=== PATIENT | female | born 2000 | race Caucasian/White ===

== ENCOUNTER → 2020-02-05 | Outpatient (REF) | payer BC ==
[2020-02-05 11:50] LABS: URINE PREG TEST NEGATIVE (NEGATIVE)
== END ==
LOC: M LABDRAW1 09:49
PROVIDERS: ATTEND Orthopaedic Surgery
DX: Z00.00 Encounter for general adult medical examination without abnormal findings (principal)

== ENCOUNTER → 2020-03-29 | Outpatient (CLI) | payer BC ==
[~2020-03-29] MED LIST: HYDR-643 PO; ISIB1TAB PO; PROAAER10 INH
== END ==
LOC: M LABSMTC 11:01
PROVIDERS: ATTEND Anesthesiology
DX: Z01.818 Encounter for other preprocedural examination (principal); Z11.59 Encounter for screening for other viral diseases

== ENCOUNTER 2020-04-01 06:00 | Day surgery (SDC) | payer BC ==
[~2020-04-01] VITALS: Ht 165.1 cm; Wt 69.6 kg
[~2020-04-01 06:00] MED LIST changes: +LIDOCAINE 1% MDV 20ML VIAL SQ PRN
[2020-04-01] MEDS ORDERED: ROPIvacaine 0.5% 30ML INJECTION (J2795 PER 1MG) ONE (06:01)
[2020-04-01] MEDS ORDERED: EPINEPHrine INJ 1 MG/ML 1ML AMP ONE (06:01)
[2020-04-01] MEDS ORDERED: dexameTHASONE 10MG/1ML VIAL PRES.FREE (J1100 PER 1MG) ONE (06:01)
[2020-04-01] MEDS ORDERED: ceFAZolin SOD 2 GM in IV 1 EA IV ONE (07:00)
[2020-04-01] MEDS ORDERED: LR 1,000 ML IV ONE (07:00)
[2020-04-01] MEDS ORDERED: MIDAZOLAM INJ 2MG/2ML VIAL (J2250 PER 1MG) As Ordered ONE ×2 (07:05→07:22)
[2020-04-01] MEDS ORDERED: fentaNYL 100 MCG/2 ML INJECTION (J3010) As Ordered ONE ×4 (07:05→09:59)
[2020-04-01] MEDS ORDERED: propofoL 200 MG/20 ML VIAL As Ordered ONE (07:21)
[2020-04-01] MEDS ORDERED: LIDOCAINE 2% 100MG/5ML SDV (FOR ANES.) As Ordered ONE (07:21)
[2020-04-01] MEDS ORDERED: ROCURONIUM BROMIDE 50 MG/5 ML VIAL As Ordered ONE (07:40)
[2020-04-01] MEDS ORDERED: SUCCINYLCHOLINE 100 MG/5 ML SYRINGE (J0330) As Ordered ONE (07:40)
[2020-04-01] MEDS ORDERED: MIDAZOLAM INJ 2MG/2ML VIAL (J2250 PER 1MG) IV ONE ×2 (07:45→11:00)
[2020-04-01] MEDS ORDERED: fentaNYL 100 MCG/2 ML INJECTION (J3010) IV ONE ×2 (07:45→11:00)
[2020-04-01] MEDS ORDERED: KETOROLAC 60 MG/2 ML VIAL As Ordered ONE (08:22)
[2020-04-01] MEDS ORDERED: ONDANSETRON 4MG/2ML VIAL As Ordered ONE (08:22)
[2020-04-01] MEDS ORDERED: ACETAMINOPHEN 1000MG 100ML IV BTL (OFIRMEV) (J0131 PER 10MG) As Ordered ONE (08:22)
[2020-04-01] MEDS ORDERED: dexameTHASONE 4 MG/ML 1ML VIAL (J1100 PER 1MG) As Ordered ONE (08:22)
--- NOTE | 2020-04-01 09:40 | REP ---
RIGHT KNEE SERIES: Four views. HISTORY: Right knee instability. 10 seconds of fluoroscopy time is reported. FINDINGS: Four views in the AP and lateral projection document operative manipulation of the knee. No laterality markers are visible on the present images. Electronically Signed by Eric Cristina MD 04/01/2020 10:41 A
[2020-04-01] MEDS ORDERED: SUGAMMADEX SODIUM 500 MG/5 ML VIAL (BRIDION) As Ordered ONE (09:42)
[2020-04-01] MEDS ORDERED: fentaNYL 100 MCG/2 ML INJECTION (J3010) IV PRN (10:30)
[2020-04-01] MEDS ORDERED: ONDANSETRON 4MG/2ML VIAL IV PRN (10:30)
[2020-04-01] MEDS ORDERED: LR 1,000 ML IV SCH ×2 (10:30)
[2020-04-01] MEDS ORDERED: oxyCODONE 5MG TAB PO PRN (10:30)
[2020-04-01] MEDS ORDERED: PROMETHAZINE INJ 25 MG/ML VIAL (J2550) As Ordered ONE (10:56)
[2020-04-01] MEDS ORDERED: PROMETHAZINE INJ 25 MG/ML VIAL (J2550) IV ONE (11:00)
[2020-04-01 12:30] VITALS: BP 107/63
--- NOTE | 2020-04-05 16:10 | RO ---
DATE OF PROCEDURE: 04/01/2020 PREOPERATIVE DIAGNOSES: 1. Right knee recurrent patellar instability. 2. Right knee chondromalacia. POSTOPERATIVE DIAGNOSES: 1. Right knee recurrent patellar instability. 2. Right knee chondromalacia. PROCEDURE 1. Right knee diagnostic arthroscopy. 2. Right knee open medial patellofemoral ligament reconstruction with allograft. SURGEON: Dr. Hai Dior TICKER INSTALLER: CLEVE Zavala ANESTHESIA: Preoperative nerve block plus general. IV FLUIDS: Lactated Ringer's. ESTIMATED BLOOD LOSS: Less than 5 mL. IMPLANTS: Gracilis allograft, Arthrex 3 mm suture tack times two and Arthrex 5.5 mm corkscrew times one. CLOSURE: Monocryl and Steri-Strips. DESCRIPTION OF PROCEDURE: The patient was identified in preoperative holding area. The right leg was marked. She had a nerve block by anesthesia. She was brought the operating room, placed supine on well-padded operating room (OR) table. General anesthesia induced. She received appropriate IV antibiotics within 1 hour of incision. Examination under anesthesia revealed range of motion from 0-140 degrees, stable to varus and valgus stress, grade 1 A Nica. She had three quadrants of lateral patellar mobility to poor endpoint. A well-padded tourniquet was applied to the right thigh. The right leg was then prepped and draped in normal sterile fashion with Chloraprep with the leg prepped from the toes up to the tourniquet. Prior to incision, time-out performed per hospital protocol. Cristina was present the entire procedure and participated in all essential portions of the procedure. This included patient positioning and draping, holding retractors, preparing the graft, stabilizing the patella during anchor placement, managing sutures during graft fixation and a wound closure dressing and brace. The right leg was exsanguinated with an Esmarch bandage and the tourniquet inflated to 275 mmHg. The knee was insufflated with lactated Ringer's. Standard anterolateral portal was made with an 11 blade. 30-degree arthroscope was introduced into the joint. Diagnostic arthroscopy revealed grade 1 chondromalacia at the proximal lateral trochlea and at the medial patellar facet. Overall, in the patellofemoral joint was in excellent condition. Medial and lateral compartments were then inspected. There were no chondral defects and no meniscus tears. Anterior cruciate ligament (ACL) was unremarkable. No indication for chondroplasty. The knee was irrigated and drained. The gracilis allograft was thawed on the back table and then prepared with #2-0 Vicryl, dyed on one end and undyed on the other in a locking whip stitch fashion. I then made a longitudinal incision with a 15 blade along the medial border of patella. Full thickness dissection down to the superficial retinaculum. Fresh 15 blade was then used to sharply incise through layers 1 and 2. The medial retinaculum down onto the medial patellar facet without violating the joint capsule. Periosteal flap was raised anteriorly. Next, a rongeur was used to create a trough in the medial border of the patella. I then placed two Arthrex suture tacks, these 3 mm anchors, one was placed at the equator and the other a centimeter proximal. They both had excellent fixation. Next a separate incision was made with a 15 blade between the medial epicondyle and abductor tubercle. Subcuticular dissection with electrocautery and blunt finger dissection. The sulcus between the tubercle and epicondyle was palpated and then a K-wire was drilled by hand. Appropriate position was confirmed on AP and lateral views using the large C-arm. Next the deep fascia was opened with electrocautery. Then the guidewire was removed and then I replaced it with a punch for a corkscrew anchor. Then after the punch, used a threaded tap and then 5/5 double loaded corkscrew was placed with excellent fixation. I then secured the midpoint of the allograft to the medial border of the patella using a curve free needle and the sutures from the two suture tacks. All suture limbs were passed and the free interlocking fashion and the corresponding free limb was tensioned to reduce the graft to the anchor. So we had four points of fixation, two from each anchor. This nicely secured the graft into the medial patellar trough. Excess suture was cut with a knife and discarded. Passing stitch was then used to pass the tails of the allograft between layers two and three exiting at the corkscrew anchor. Similar steps were repeated using a curve-free needle and then I individually tensioned each tail of the allograft to the corkscrew. Prior to final tying, I did check lateral patellar excursion at 0, 10, 20, 30, 40 and 50 degrees knee flexion making sure to not over tighten the construct. I was pleased with the amount of tension with lateral patellar excursion and placed a total of four locking passes for each suture and then the free limb was again re-tensioned reducing the graft to the anchor and check final translation. Knots were tied by hand and then excess suture was cut and discarded. Excess graft was cut and discarded. I did a final assessment of lateral patellar translation. She was found have two quadrants of lateral patellar mobility with a nice endpoint. The knee was ranged from 0 to 110 degrees with no loosening the graft. We then irrigated the incisions. The retinaculum was closed with 0 Vicryl suture in [id number] fashion with the knee over a triangle to keep in flexion. The remainder that incision was closed with #2-0 Vicryl and a running Monocryl. Steri-Strips placed at the end. Far medial incision was closed with #2-0 Vicryl for the deep fascia followed by #2-0 Vicryl and a running Monocryl. Steri-Strips were placed. The arthroscopy portals closed with Monocryl in the arthroscopy stitch fashion. At the time of dictation, dressing is being applied. Tourniquet let down with excellent reperfusion. She will be placed into a hinged knee brace locked in extension. COMPLICATIONS: None. DISPOSITION: The patient will be 50% weightbearing with her hinged knee brace locked in extension for 6 weeks. Physical therapy should start within a week. She was told at preop. She needs aspirin, either 325 mg 1 tablet by mouth daily for 4 weeks or 81 mg by mouth twice a day for 4 weeks.
== END 2020-04-01 12:40 | disposition home or self-care (01) ==
LOC: M SDC 06:00
PROVIDERS: ATTEND Orthopaedic Surgery
DX: M25.361 Other instability, right knee (principal); M94.261 Chondromalacia, right knee; G43.909 Migraine, unspecified, not intractable, without status migrainosus; J45.909 Unspecified asthma, uncomplicated; Z79.899 Other long term (current) drug therapy; F41.9 Anxiety disorder, unspecified
CPT/HCPCS: 27427; 29870; 64447; 76000; 81025; C1713; C1762; J0131; J0171; J0330; J0690; J1100; J1885; J2250; J2405; J2795; J3010

== ENCOUNTER 2020-08-30 09:14 | Emergency (ER) | payer BC ==
[~2020-08-30] VITALS: Ht 165.1 cm; Wt 71.8 kg
[~2020-08-30 09:14] MED LIST changes: -LIDOCAINE 1% MDV 20ML VIAL SQ PRN
[2020-08-30] MEDS ORDERED: azo (09:26)
[2020-08-30 09:46] LABS: BILIRUBIN, URINE MANUAL OBSCURED (NEGATIVE); GLUCOSE, URINE (UA) MANUAL OBSCURED mg/dL (NEGATIVE); KETONE, URINE MANUAL OBSCURED mg/dL (NEGATIVE); UROBILINOGEN, URINE MANUAL OBSCURED mg/dl (NORMAL)
[2020-08-30 09:49] LABS: BACTERIA, URINE SMALL AMOUNT; SQUAMOUS EPITHELIAL CELL URINE MOD AMOUNT /hpf (SMALL AMT)
--- NOTE | 2020-08-30 13:05 | REPVR ---
PROCEDURE INFORMATION: Exam: CT Abdomen And Pelvis Without Contrast Exam date and time: 08/30/2020 12:42 PM Age: 20 years old Clinical indication: Abdominal pain; Additional info: Abd pain TECHNIQUE: Imaging protocol: Computed tomography of the abdomen and pelvis without contrast. Radiation optimization: All CT scans at this facility use at least one of these dose optimization techniques: automated exposure control; mA and/or kV adjustment per patient size (includes targeted exams where dose is matched to clinical indication); or iterative reconstruction. COMPARISON: No relevant prior studies available. FINDINGS: Liver: Normal. No mass. Gallbladder and bile ducts: Normal. No calcified stones. No ductal dilation. Pancreas: Normal. No ductal dilation. Spleen: Normal. No splenomegaly. Adrenals: Normal. No mass. Kidneys and ureters: Normal. No hydronephrosis. Stomach and bowel: There is no evidence for intestinal obstruction. Appendix: A normal appendix is identified with high density material within the lumen.There is no evidence of distention or periappendiceal inflammation to suggest appendicitis. Intraperitoneal space: Unremarkable. No free air. No significant fluid collection. Vasculature: Unremarkable. No abdominal aortic aneurysm. Lymph nodes: Unremarkable. No enlarged lymph nodes. Urinary bladder: Unremarkable as visualized. Reproductive: Unremarkable as visualized. Bones/joints: Unremarkable. No acute fracture. Soft tissues: Unremarkable. Other findings: No evidence of acute abnormality in the abdomen. IMPRESSION: 1. A normal appendix is identified with high density material within the lumen.There is no evidence of distention or periappendiceal inflammation to suggest appendicitis. 2. No evidence of acute abnormality in the abdomen. 3. There is no evidence for intestinal obstruction. Electronically signed by: Anibal Mckeon On 08/30/2020 13:05:35 PM
[2020-08-30] MEDS ORDERED: PYRI1TAB5 PO (13:26)
[2020-08-30 13:52] VITALS: BP 101/60
== END 2020-08-30 13:54 | disposition home or self-care (01) ==
LOC: M ED 09:14
DX: R39.11 Hesitancy of micturition (principal); R39.15 Urgency of urination; J45.909 Unspecified asthma, uncomplicated; F41.9 Anxiety disorder, unspecified

== ENCOUNTER → 2025-10-05 | Outpatient (RCR) ==
[~2025-10-05] MED LIST changes: +PYRI1TAB5 PO; +azo
== END ==
LOC: M EMPSKH 09-26 14:57
PROVIDERS: ATTEND Family Medicine
DX: Z20.828 Contact with and (suspected) exposure to other viral communicable diseases (principal)